=== PATIENT | male | born 1945 | race African-American/Black ===

== ENCOUNTER 2018-05-01 06:50 | Inpatient (IN) ==
[~2018-05-01 06:50] MED LIST: ceFAZolin 1,000 MG in SYRINGE 1 EACH IV ONE
[2018-05-01] MEDS ORDERED: ceFAZolin 1,000 MG VIAL ONE (07:30)
[2018-05-01 07:34] LABS: Basophils # 0.1 10*3/uL (0.0-0.2); Basophils % 0.8 % (0.0-0.8); Eosinophils # 0.2 10*3/uL (0.0-0.87); Eosinophils % 2.4 % (0.00-10.9); Hematocrit 39.7 VOL% (42.0-52.0); Hemoglobin 12.7 GM/DL (14.0-18.0); Immature Granulocytes % 0.3 %; Immature Granulocytes Absolute 0.02 #; Lymphocytes # 2.1 10*3/uL (1.4-4.0); Lymphocytes % 32.2 % (21.2-54.2); Mean Corpuscular Hemoglobin 31 PG (27-34); Mean Platelet Volume 9.1 FL (9.6-12.0); Monocytes # 0.6 10*3/uL (0.11-0.8); Monocytes % 8.8 % (1.7-12.7); Neutrophils # 3.5 10*3/uL (1.4-7.4); Neutrophils % 55.5 % (38.7-73.9); Platelet Count 187 T/CUMM (130-400); Red Blood Count 4.05 MC/CUMM (3.8-5.5); Red Cell Distribution Width 12.9 % (9.3-17.3); White Blood Count 6.4 T/CUMM (4-12)
[2018-05-01] MEDS ORDERED: VANCOMYCIN 500 MG VIAL ONE (07:44)
[2018-05-01] MEDS ORDERED: HEPARIN 5,000 UNIT/1 ML VIAL ONE (07:44)
[2018-05-01] MEDS ORDERED: LIDOCAINE 1% 20 ML VIAL ONE (07:44)
[2018-05-01] MEDS ORDERED: THROMBIN TOPICAL (RECOMBINANT) 5,000 UNIT VIAL TOP ONE (07:44)
[2018-05-01] MEDS: LACTATED RINGERS 1,000 ML IV SCH ×3 (08:20→15:47)
[2018-05-01] MEDS ORDERED: TISSUE ADHESIVE 1 EACH APPLICATOR TOP ONE (09:36)
[2018-05-01] MEDS ORDERED: ONDANSETRON 4 MG/2 ML VIAL IV PRN (10:06)
[2018-05-01] MEDS ORDERED: NITROGLYCERIN SL 0.4 MG TABLET SL PRN (10:09)
[2018-05-01] MEDS ORDERED: GABAPENTIN 300 MG CAPSULE PO PRN (10:09)
[2018-05-01] MEDS ORDERED: EPINEPHrine 1 MG/ML VIAL ONE (10:28)
[2018-05-01] MEDS ORDERED: PROPOFOL 200 MG/20 ML VIAL IV ONE (10:28)
[2018-05-01] MEDS ORDERED: MIDAZOLAM 2 MG/2 ML VIAL ONE (10:28)
[2018-05-01] MEDS ORDERED: PHENYLEPHRINE 1 MG/10 ML SYRINGE IV ONE (10:29)
[2018-05-01] MEDS ORDERED: PHENYLEPHRINE 10 MG/1 ML VIAL IV ONE (10:29)
[2018-05-01] MEDS ORDERED: ROCURONIUM 100 MG/10 ML VIAL IV ONE (10:29)
[2018-05-01] MEDS ORDERED: ONDANSETRON 4 MG/2 ML VIAL ONE (10:29)
[2018-05-01] MEDS ORDERED: SEVOFLURANE 1 UNIT/15 MINUTE INH ONE (10:33)
[2018-05-01] MEDS ORDERED: SODIUM CHLORIDE 0.9% 100 ML IV ONE (10:33)
[2018-05-01] MEDS ORDERED: NITROGLYCERIN DRIP 50 MG/250 ML BOTTLE IV ONE (10:33)
[2018-05-01] MEDS ORDERED: HEPARIN/NACL 0.9% 2 UNITS/ML 500 ML IV ONE (10:34)
[2018-05-01] MEDS ORDERED: SODIUM CHLORIDE 0.9% 1,000 ML IV ONE (10:34)
[2018-05-01] MEDS ORDERED: SODIUM CHLORIDE 0.9% 500 ML IV ONE (10:34)
[2018-05-01] MEDS ORDERED: HEPARIN 10,000 UNIT/10 ML VIAL ONE (10:35)
[2018-05-01] MEDS: HYDROmorphone 2 MG/1 ML VIAL IV PRN (12:28)
[2018-05-01] MEDS: CARVEDILOL 3.125 MG TABLET PO SCH (20:23)
[2018-05-01] MEDS: SIMETHICONE CHEW 80 MG TABLET PO PRN (20:23)
[2018-05-02] MEDS: LACTATED RINGERS 1,000 ML IV SCH ×4 (00:18→16:45)
[2018-05-02] MEDS: HYDROmorphone 2 MG/1 ML VIAL IV PRN (00:28)
[2018-05-02 04:36] LABS: Basophils % 0.4 % (0.0-0.8); Eosinophils % 0.4 % (0.00-10.9); Hematocrit 35.8 VOL% (42.0-52.0); Hemoglobin 11.7 GM/DL (14.0-18.0); Immature Granulocytes % 0.3 %; Immature Granulocytes Absolute 0.02 #; Lymphocytes # 1.6 10*3/uL (1.4-4.0); Lymphocytes % 23.5 % (21.2-54.2); Mean Corpuscular HGB Conc 32.7 GM/DL (32-36); Mean Corpuscular Hemoglobin 32 PG (27-34); Mean Corpuscular Volume 96.5 FL (87-102); Monocytes # 0.6 10*3/uL (0.11-0.8); Neutrophils # 4.6 10*3/uL (1.4-7.4); Neutrophils % 67.4 % (38.7-73.9); Platelet Count 174 T/CUMM (130-400); Red Blood Count 3.71 MC/CUMM (3.8-5.5); Red Cell Distribution Width 12.9 % (9.3-17.3); White Blood Count 6.9 T/CUMM (4-12)
[2018-05-02 05:02] LABS: Calcium 8.2 MG/DL (8.5-10.1); Osmolality,Calculated 277.4 MOS/KG (273-304)
[2018-05-02 05:05] LABS: Troponin I < 0.015 NG/ML (0.00-0.045)
[2018-05-02] MEDS: ASPIRIN EC 81 MG TABLET PO SCH (08:31)
[2018-05-02] MEDS: LISINOPRIL 10 MG TABLET PO SCH (08:31)
[2018-05-02] MEDS: ROSUVASTATIN 20 MG TABLET PO SCH (08:31)
[2018-05-02] MEDS: CARVEDILOL 3.125 MG TABLET PO SCH ×2 (08:31→21:13)
[2018-05-02] MEDS: SIMETHICONE CHEW 80 MG TABLET PO PRN ×2 (08:31→17:56)
[2018-05-02] MEDS: CLOPIDOGREL 75 MG TABLET PO SCH (08:31)
[2018-05-02] MEDS: TAMSULOSIN 0.4 MG CAPSULE PO SCH (08:32)
[2018-05-02] MEDS ORDERED: ASPIRIN CHEW 81 MG TABLET PO SCH (09:00)
[2018-05-02] MEDS: METOCLOPRAMIDE 10 MG/2 ML VIAL IV SCH ×3 (12:19→23:33)
[2018-05-03] MEDS: METOCLOPRAMIDE 10 MG/2 ML VIAL IV SCH (05:57)
[2018-05-03] MEDS: TAMSULOSIN 0.4 MG CAPSULE PO SCH (08:34)
[2018-05-03] MEDS: CARVEDILOL 3.125 MG TABLET PO SCH (08:34)
[2018-05-03] MEDS: CLOPIDOGREL 75 MG TABLET PO SCH (08:34)
[2018-05-03] MEDS: ASPIRIN EC 81 MG TABLET PO SCH (08:34)
[2018-05-03] MEDS: LISINOPRIL 10 MG TABLET PO SCH (08:34)
[2018-05-03] MEDS: ROSUVASTATIN 20 MG TABLET PO SCH (08:34)
[2018-05-03 11:33] VITALS: BP 122/60
== END 2018-05-03 12:11 | disposition home or self-care (01) | DRG 271 ==
LOC: N.OR 06:50 → N.SDSINP 06:51 → N.3E 11:13
PROVIDERS: ADMIT Surgery; ATTEND Surgery